=== PATIENT | male | born 1965 | race Caucasian/White ===

== ENCOUNTER 2018-12-09 | Emergency (ER) | payer MEDICAID, OTHER ==
[~2018-12-09] VITALS: Ht 170.2 cm; Wt 83.9 kg
[2018-12-09 00:05] VITALS: BP_SYST 117
== END 2018-12-09 04:35 | disposition left against medical advice (07) ==
LOC: SED
DX: S50.351A Superficial foreign body of right elbow, initial encounter (principal); J45.909 Unspecified asthma, uncomplicated; W46.0XXA Contact with hypodermic needle, initial encounter; Y93.89 Activity, other specified; Y92.89 Other specified places as the place of occurrence of the external cause; Y99.8 Other external cause status
CPT/HCPCS: 99284